=== PATIENT | male | born 1950 | race Caucasian/White ===

== ENCOUNTER 2021-06-25 09:35 | Outpatient (CLI) | payer MEDICARE, MEDICAID ==
[~2021-06-25 09:35] MED LIST: ASPI-12 PO; LISI-643 PO; LISI20TA28 PO; METO-395 PO; PRAV40TA PO; RANEXA
== END 2021-06-25 23:59 | disposition home or self-care (01) ==
LOC: RAD 09:35
PROVIDERS: ATTEND Physician Assistant
DX: Z01.818 Encounter for other preprocedural examination (principal); M48.07 Spinal stenosis, lumbosacral region; M54.16 Radiculopathy, lumbar region; I71.4 Abdominal aortic aneurysm, without rupture
CPT/HCPCS: 72148

== ENCOUNTER 2021-11-13 09:05 | Day surgery (SDC) | payer MEDICARE, MEDICAID ==
[2021-11-13] VITALS (7 sets, daily range): BP systolic 121–137; BP diastolic 68–88
[~2021-11-13] VITALS: Ht 167.6 cm; Wt 74.4 kg
[2021-11-13 10:25] LABS: BASOPHILS # (AUTO) 0.1 X10'3 (0-0.2); BASOPHILS % (AUTO) 0.8 % (0-1); EOSINOPHILS # (AUTO) 0.1 X10'3 (0-0.9); EOSINOPHILS % (AUTO) 1.7 % (0-6); LYMPHOCYTES # (AUTO) 1.4 X10'3 (1.1-4.8); LYMPHOCYTES % (AUTO) 18.6 % (21-51); MEAN CORPUSCULAR HEMOGLOBIN 29.1 PG (27.0-31.0); MEAN CORPUSCULAR HGB CONC 34.1 g/dL (33.0-36.5); MEAN CORPUSCULAR VOLUME 85.5 FL (78-98); MONOCYTES # (AUTO) 0.5 X10'3 (0-0.9); MONOCYTES % (AUTO) 6.2 % (2-12); NEUTROPHILS # (AUTO) 5.6 X10'3 (1.8-7.7); NEUTROPHILS % (AUTO) 72.7 % (42-75); PLATELET COUNT 132 X10'3 (140-440); RED CELL DISTRIBUTION WIDTH 15.2 % (11.5-14.5); WHITE BLOOD COUNT 7.7 X10'3 (4.5-11.0)
[2021-11-13] MEDS ORDERED: cefazolin/dext.iso 2gm/50ml 50 ML IV ONE (10:25)
[2021-11-13 10:48] LABS: ALBUMIN 4.9 G/DL (3.4-5.0); ANION GAP 11 (8-16); BLOOD UREA NITROGEN 7 MG/DL (7-18); BUN/CREATININE RATIO 6.5 (5.4-32.0); CALCIUM 9.6 MG/DL (8.5-10.1); CHLORIDE 103 MMOL/L (99-107); CREATININE 1.07 MG/DL (0.60-1.10); GLUCOSE 108 MG/DL (70-104); POTASSIUM 4.2 MMOL/L (3.5-5.1); SODIUM 141 MMOL/L (135-145); TOTAL CARBON DIOXIDE 27.4 MMOL/L (24-32); eGFR 69 ML/MIN
[2021-11-13] MEDS ORDERED: OMEP40CA21 PO (10:51)
[2021-11-13] MEDS ORDERED: METO-411 PO (10:51)
[2021-11-13] MEDS ORDERED: LOSA25TA41 PO (10:51)
[2021-11-13] MEDS ORDERED: ATOR-2 (10:51)
[2021-11-13] MEDS ORDERED: HYDR-3972 PO (10:51)
[2021-11-13] MEDS ORDERED: ESZO3TAB44 PO (10:51)
[2021-11-13] MEDS ORDERED: RIVA20TA PO (10:51)
[2021-11-13] MEDS ORDERED: midazolam 1 mg/ML 2ml injection ONE ×3 (14:32→15:34)
[2021-11-13] MEDS ORDERED: fentaNYL/PF 50MCG/1 ML 2ML syringe ONE (14:32)
[2021-11-13] MEDS ORDERED: vancomycin 1,000mg inj ONE (14:32)
[2021-11-13] MEDS ORDERED: LIDOCAINE 2% w/EPI 1:100:000 30mL injection MDV**cath lab 1 only ONE (14:32)
== END 2021-11-13 18:00 | disposition home or self-care (01) ==
LOC: SSTAY O 09:05
PROVIDERS: ATTEND Internal Medicine Cardiovascular Disease
DX: Z45.010 Encounter for checking and testing of cardiac pacemaker pulse generator [battery] (principal); I25.118 Atherosclerotic heart disease of native coronary artery with other forms of angina pectoris; I48.0 Paroxysmal atrial fibrillation; I47.1 Supraventricular tachycardia; I10 Essential (primary) hypertension; E78.5 Hyperlipidemia, unspecified; K21.9 Gastro-esophageal reflux disease without esophagitis; J44.9 Chronic obstructive pulmonary disease, unspecified; G47.30 Sleep apnea, unspecified; Z87.891 Personal history of nicotine dependence; Z86.73 Personal history of transient ischemic attack (TIA), and cerebral infarction without residual deficits; Z86.19 Personal history of other infectious and parasitic diseases; Z79.899 Other long term (current) drug therapy; Z90.49 Acquired absence of other specified parts of digestive tract; Z95.1 Presence of aortocoronary bypass graft; Z98.890 Other specified postprocedural states; Z88.5 Allergy status to narcotic agent
CPT/HCPCS: 33228; 36415; 80048; 83735; 85025; 85610; 93005; 99152; 99153; C1785; J2250; J3010; J3370; J3490; A4620; A6258; A6449

== ENCOUNTER 2023-09-29 08:25 | Outpatient (CLI) | payer MEDICARE, MEDICAID ==
[~2023-09-29 08:25] MED LIST changes: -ASPI-12 PO; +ATOR-2; +ESZO3TAB44 PO; +HYDR-3972 PO; +LOSA25TA41 PO; +METO-411 PO; +OMEP40CA21 PO; +RIVA20TA PO
== END 2023-09-29 23:59 | disposition home or self-care (01) ==
LOC: RAD 08:25
PROVIDERS: ATTEND Physician Assistant
DX: Z01.818 Encounter for other preprocedural examination (principal); M47.27 Other spondylosis with radiculopathy, lumbosacral region; M51.17 Intervertebral disc disorders with radiculopathy, lumbosacral region; M25.78 Osteophyte, vertebrae; M54.50 Low back pain, unspecified; M48.07 Spinal stenosis, lumbosacral region; I71.40 Abdominal aortic aneurysm, without rupture, unspecified; Z95.0 Presence of cardiac pacemaker
CPT/HCPCS: 72148

== ENCOUNTER → 2024-12-13 | Outpatient (CLI) | payer MEDICARE, MEDICAID ==
--- NOTE | 2024-12-13 22:11 | RADIOLOGY REPORT ---
EXAM: MR MRI LUMBAR SPINE HISTORY: CHRONIC LOW BACK PAIN COMPARISON: MR MRI LUMBAR SPINE on DOS: 09/29/23, MRI LUMBAR SPINE on DOS: 06/25/21 TECHNIQUE: MRI was performed utilizing multiple appropriate imaging planes and pulse sequences. FINDINGS: For the purposes of this report, the last square-shaped vertebra is considered L5. Prior to any surg ramos, correlation with lumbar spine radiographs should be done. VERTEBRAE: No significant compression deformity is noted. No suspicious lesion is seen. SPINAL CORD: Terminates at the L1 level. No evidence of cord edema or myelomalacia within the parti ally visualized conus medullaris. PARASPINAL SOFT TISSUES: Unremarkable. INTERVERTEBRAL DISCS: T12-L1: No disc herniation, central canal stenosis or neural foramina narrowing. The posterior facet s and ligamentum flavum are unremarkable. L1-L2: 2 mm degenerative grade 1 anterolisthesis without pars defects, mild broad-based posterior dis c bulge, mild bilateral posterior facet and ligamenta flava hypertrophy with resultant mild central c anal stenosis and mild bilateral neural foramina stenosis without definite nerve impingement. L2-L3: Mild broad-based posterior disc bulge, mild bilateral posterior facet and ligamenta flava hyp ertrophy with resultant mild central canal stenosis and mild bilateral neural foramina stenosis with impingement of the left emerging L3 nerve roots. L3-L4: 3 mm degenerative grade 1 anterolisthesis without pars defects, mild broad-based posterior d isc bulge, moderate bilateral posterior facet and ligamentum flavum hypertrophy and prominent posteri or fat pad with resultant moderate central canal stenosis, impingement of the traversing lumbosacral nerve nerve roots and mild bilateral neural foramina stenosis. L4-L5: 4 mm degenerative grade 1 anterolisthesis without pars defects, severe reduction in disc hei ght, broad-based posterior disc-osteophyte complex eccentric to the left, bilateral posterior facet a nd ligamentum flavum hypertrophy with resultant moderate central canal stenosis and severe bilateral neural foramina stenosis with impingement of the left emerging L5 nerve roots bilateral exiting nerve s. L5-S1: 4 mm degenerative grade 1 anterolisthesis without pars defects, severe reduction in disc heig ht, mild broad-based posterior disc -osteophyte complex, bilateral Posterior facet and ligamentum fla vum hypertrophy with mild central canal stenosis and severe bilateral neural foramina stenosis with i mpingement of the bilateral exiting L5 nerves. OTHER: Incidentally noted is abdominal aorta aneurysm measuring 8.4 cm in length, 7 cm in AP and 7 c m in transverse with suggestion of bifurcated stent grafting. Evaluation is limited in this MRI. Fur ther evaluation with a CT angiogram could be completed if clinically indicated. Sigmoid diverticulosi s noted. IMPRESSION: Stable lumbar spine MRI with mild leftward curvature, straightening of normal lordosis, multilevel de generative spondylolisthesis, multilevel degenerative disc disease and posterior facet arthropathy wi th evidence of nerve impingement L2-S1 levels. L2-L3: Mild broad-based posterior disc bulge, mild bilateral posterior facet and ligamenta flava hyp ertrophy with resultant mild central canal stenosis and mild bilateral neural foramina stenosis with impingement of the left emerging L3 nerve roots. L3-L4: 3 mm degenerative grade 1 anterolisthesis without pars defects, mild broad-based posterior d isc bulge, moderate bilateral posterior facet and ligamentum flavum hypertrophy and prominent posteri or fat pad with resultant moderate central canal stenosis, impingement of the traversing lumbosacral nerve nerve roots and mild bilateral neural foramina stenosis. L4-L5: 4 mm degenerative grade 1 anterolisthesis without pars defects, severe reduction in disc hei ght, broad-based posterior disc-osteophyte complex eccentric to the left, bilateral posterior facet a nd ligamentum flavum hypertrophy with resultant moderate central canal stenosis and severe bilateral neural foramina stenosis with impingement of the left emerging L5 nerve roots bilateral exiting nerve s. L5-S1: 4 mm degenerative grade 1 anterolisthesis without pars defects, severe reduction in disc heig ht, mild broad-based posterior disc -osteophyte complex, bilateral Posterior facet and ligamentum fla vum hypertrophy with mild central canal stenosis and severe bilateral neural foramina stenosis with i mpingement of the bilateral exiting L5 nerves.
== END | disposition home or self-care (01) ==
LOC: MRI 12-07 12:24
PROVIDERS: ATTEND Anesthesiology
DX: M47.817 Spondylosis without myelopathy or radiculopathy, lumbosacral region (principal); M54.50 Low back pain, unspecified; G89.29 Other chronic pain; M48.07 Spinal stenosis, lumbosacral region; I71.40 Abdominal aortic aneurysm, without rupture, unspecified; M43.8X6 Other specified deforming dorsopathies, lumbar region
CPT/HCPCS: 72148